=== PATIENT | female | born 1995 | race African-American/Black ===

== ENCOUNTER 2017-09-27 20:00 | Emergency (ER) | payer OTHER ==
[2017-09-27] MEDS ORDERED: IBUPROFEN 600 MG TABLET PO ONE (22:12)
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
[2017-09-27 23:00] VITALS: BP 113/70
== END 2017-09-27 23:50 | disposition home or self-care (01) ==
LOC: ER 20:00
DX: M25.511 Pain in right shoulder (principal); R07.81 Pleurodynia; M54.9 Dorsalgia, unspecified; V43.62XA Car passenger injured in collision with other type car in traffic accident, initial encounter
CPT/HCPCS: 99283

== ENCOUNTER 2019-09-11 23:07 | Emergency (ER) | payer OTHER ==
[2019-09-11] MEDS ORDERED: KETOROLAC TROMETHAMINE 60 MG/2 ML SDV IM ONE (23:14)
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
[2019-09-12 01:42] VITALS: BP 109/60
== END 2019-09-12 01:41 | disposition home or self-care (01) ==
LOC: ER 23:07
DX: M25.512 Pain in left shoulder (principal); R51 Headache; M54.9 Dorsalgia, unspecified; V89.2XXA Person injured in unspecified motor-vehicle accident, traffic, initial encounter
CPT/HCPCS: 81025; 72110; 73030; 72070; J1885; 96372; 99284